=== PATIENT | female | born 2000 | race Caucasian/White ===

== ENCOUNTER 2019-08-12 | Emergency (ER) | payer SELFPAY ==
[2019-08-12 23:13] LABS: URINE BILIRUBIN - DIPSTICK NEGATIVE (NEGATIVE); URINE BLOOD DIPSTICK TRACE-INTACT (NEGATIVE); URINE COLOR YELLOW; URINE GLUCOSE - DIPSTICK NEGATIVE (NEGATIVE); URINE KETONE NEGATIVE (NEGATIVE); URINE LEUK ESTERASE NEGATIVE (NEGATIVE); URINE NITRITE - DIPSTICK NEGATIVE (Negative); URINE PROTEIN - DIPSTICK NEGATIVE (NEG-TRACE); URINE SPECIFIC GRAVITY 1.015
[2019-08-12] MEDS ORDERED: AMOXICILLIN500 MG PO (23:19)
== END 2019-08-12 23:58 | disposition home or self-care (01) | DRG 153 ==
DX: J02.0 Streptococcal pharyngitis (principal)

== ENCOUNTER 2019-12-27 12:38 | Emergency (ER) | payer MEDICAID ==
[~2019-12-27 12:38] MED LIST: AMOXICILLIN500 MG PO
[2019-12-27 13:42] LABS: HEMATOCRIT 39.4 % (37.0-47.0); HEMOGLOBIN 12.9 g/dl (12.0-16.0); IMMATURE GRANULOCYTES 0.5 % (0.0-5.0); MEAN CELL VOLUME 85.5 fL CALC (80.0-100.0); MEAN CORPUSCULAR HGB CONC 32.7 g/dL CAL (32.0-36.0); RED BLOOD COUNT 4.61 mill/uL (4.20-5.60); RED CELL DISTRI WIDTH 13.1 % (11.5-15.5)
[2019-12-27 13:43] LABS: URINE BILIRUBIN - DIPSTICK NEGATIVE (NEGATIVE); URINE BLOOD DIPSTICK NEGATIVE (NEGATIVE); URINE COLOR YELLOW; URINE GLUCOSE - DIPSTICK NEGATIVE (NEGATIVE); URINE KETONE 15 mg/dL (NEGATIVE); URINE LEUK ESTERASE NEGATIVE (NEGATIVE); URINE NITRITE - DIPSTICK NEGATIVE (Negative); URINE PROTEIN - DIPSTICK NEGATIVE (NEG-TRACE); URINE SPECIFIC GRAVITY 1.025; URINE UROBILINOGEN - DIPSTICK 0.2 E.U./dL (0.2)
[2019-12-27 13:58] LABS: ALBUMIN 4.1 g/dL (3.2-5.0); ALKALINE PHOSPHATASE 47 u/l (38-126); ANION GAP 12 (6-22 (CALC)); BILIRUBIN, TOTAL 0.3 mg/dL (0.0-1.4); BUN 11 mg/dL (7-17); BUN/CREATININE RATIO 30 (12-20 (CALC)); CARBON DIOXIDE 23 mmol/l (22-30); CHLORIDE 105 mmol/l (95-108); CREATININE 0.4 mg/dL (0.5-1.0); GFR > 60 ML/MIN (>=60 (CALC)); GFR FOR AFR.AMER. > 60 ML/MIN (>=60 (CALC)); POTASSIUM 3.8 mmol/l (3.5-5.1); SGOT/AST 27 u/l (14-36); SODIUM 136 mmol/l (137-146)
[2019-12-27 14:14] LABS: BETA-HCG, QUANT(RESULT NUMBER) 10811 mIU/mL
[2019-12-27 14:30] VITALS: BP 120/74
== END 2019-12-27 14:44 | disposition home or self-care (01) ==
LOC: ED 12:38
PROVIDERS: Family Medicine
DX: O26.851 Spotting complicating pregnancy, first trimester (principal); Z3A.01 Less than 8 weeks gestation of pregnancy

== ENCOUNTER 2019-12-29 12:03 | Emergency (ER) | payer MEDICAID ==
[2019-12-29 14:55] VITALS: BP 112/70
== END 2019-12-29 14:55 | disposition home or self-care (01) ==
LOC: ED 12:03
DX: O20.0 Threatened abortion (principal); Z3A.01 Less than 8 weeks gestation of pregnancy

== ENCOUNTER 2020-01-05 11:09 | Emergency (ER) | payer MEDICAID ==
[2020-01-05 12:27] LABS: HEMATOCRIT 37.8 % (37.0-47.0); HEMOGLOBIN 12.5 g/dl (12.0-16.0); IMMATURE GRANULOCYTES 0.4 % (0.0-5.0); MEAN CELL VOLUME 84.6 fL CALC (80.0-100.0); MEAN CORPUSCULAR HGB CONC 33.1 g/dL CAL (32.0-36.0); NEUT# 5.92 thou/uL (2.00-7.15); RED BLOOD COUNT 4.47 mill/uL (4.20-5.60); RED CELL DISTRI WIDTH 13.2 % (11.5-15.5)
[2020-01-05 12:57] LABS: URINE BILIRUBIN - DIPSTICK NEGATIVE (NEGATIVE); URINE BLOOD DIPSTICK TRACE-INTACT (NEGATIVE); URINE COLOR YELLOW; URINE GLUCOSE - DIPSTICK NEGATIVE (NEGATIVE); URINE KETONE >=80 mg/dL (NEGATIVE); URINE LEUK ESTERASE NEGATIVE (NEGATIVE); URINE NITRITE - DIPSTICK NEGATIVE (Negative); URINE PROTEIN - DIPSTICK NEGATIVE (NEG-TRACE); URINE SPECIFIC GRAVITY >=1.030; URINE UROBILINOGEN - DIPSTICK 0.2 E.U./dL (0.2)
[2020-01-05 13:02] LABS: ALBUMIN 4.4 g/dL (3.2-5.0); ALKALINE PHOSPHATASE 52 u/l (38-126); ANION GAP 14 (6-22 (CALC)); BUN 9 mg/dL (7-17); BUN/CREATININE RATIO 26 (12-20 (CALC)); CARBON DIOXIDE 22 mmol/l (22-30); CHLORIDE 104 mmol/l (95-108); CREATININE 0.3 mg/dL (0.5-1.0); GFR > 60 ML/MIN (>=60 (CALC)); GFR FOR AFR.AMER. > 60 ML/MIN (>=60 (CALC)); LIPASE 96 u/l (23-300); POTASSIUM 3.2 mmol/l (3.5-5.1); SGOT/AST 30 u/l (14-36); SODIUM 136 mmol/l (137-146); TOTAL PROTEIN 7.5 g/dL (6.3-8.2)
[2020-01-05 13:03] LABS: BILIRUBIN, TOTAL 0.5 mg/dL (0.0-1.4)
[2020-01-05] MEDS ORDERED: METRONIDAZOL500 MG PO (13:11)
[2020-01-05 15:16] VITALS: BP 110/83
== END 2020-01-05 15:16 | disposition home or self-care (01) ==
LOC: ED 11:09
PROVIDERS: Family Medicine
DX: O23.591 Infection of other part of genital tract in pregnancy, first trimester (principal); B96.89 Other specified bacterial agents as the cause of diseases classified elsewhere; Z3A.01 Less than 8 weeks gestation of pregnancy

== ENCOUNTER 2020-01-12 20:47 | Emergency (ER) | payer MEDICAID ==
[~2020-01-12 20:47] MED LIST changes: +METRONIDAZOL500 MG PO
[2020-01-12 22:35] LABS: HEMATOCRIT 38.8 % (37.0-47.0); HEMOGLOBIN 12.8 g/dl (12.0-16.0); IMMATURE GRANULOCYTES 0.2 % (0.0-5.0); MEAN CELL VOLUME 86.2 fL CALC (80.0-100.0); MEAN CORPUSCULAR HGB 28.4 pG CALC (26.0-32.0); NEUT# 5.32 thou/uL (2.00-7.15); RED BLOOD COUNT 4.5 mill/uL (4.20-5.60); RED CELL DISTRI WIDTH 13.4 % (11.5-15.5)
[2020-01-12 22:44] LABS: URINE BILIRUBIN - DIPSTICK NEGATIVE (NEGATIVE); URINE BLOOD DIPSTICK NEGATIVE (NEGATIVE); URINE COLOR YELLOW; URINE GLUCOSE - DIPSTICK NEGATIVE (NEGATIVE); URINE KETONE NEGATIVE (NEGATIVE); URINE LEUK ESTERASE NEGATIVE (NEGATIVE); URINE NITRITE - DIPSTICK NEGATIVE (Negative); URINE PROTEIN - DIPSTICK NEGATIVE (NEG-TRACE)
[2020-01-12 22:55] LABS: ALBUMIN 4.2 g/dL (3.2-5.0); ALKALINE PHOSPHATASE 42 u/l (38-126); BUN 9 mg/dL (7-17); BUN/CREATININE RATIO 24 (12-20 (CALC)); CARBON DIOXIDE 25 mmol/l (22-30); CHLORIDE 100 mmol/l (95-108); CREATININE 0.4 mg/dL (0.5-1.0); GFR > 60 ML/MIN (>=60 (CALC)); GFR FOR AFR.AMER. > 60 ML/MIN (>=60 (CALC)); SGOT/AST 27 u/l (14-36); SODIUM 134 mmol/l (137-146); TOTAL PROTEIN 7.1 g/dL (6.3-8.2)
[2020-01-12 23:02] LABS: ANION GAP 13 (6-22 (CALC)); BILIRUBIN, TOTAL 0.2 mg/dL (0.0-1.4); POTASSIUM 3.9 mmol/l (3.5-5.1)
[2020-01-12] MEDS ORDERED: PHENERGAN25 MG RE ×2 (23:32)
[2020-01-13 00:29] VITALS: BP 129/72
== END 2020-01-13 00:43 | disposition home or self-care (01) ==
LOC: ED 20:47
PROVIDERS: Family Medicine
DX: O21.9 Vomiting of pregnancy, unspecified (principal); Z3A.08 8 weeks gestation of pregnancy

== ENCOUNTER 2020-02-25 18:56 | Emergency (ER) | payer MEDICAID ==
[~2020-02-25] VITALS: Ht 154.9 cm; Wt 75.9 kg
[~2020-02-25 18:56] MED LIST changes: +PHENERGAN25 MG RE
[2020-02-25] MEDS ORDERED: AMOXICILLIN500 MG PO (21:04)
[2020-02-25 21:30] VITALS: BP 115/74
== END 2020-02-25 21:30 | disposition home or self-care (01) ==
LOC: ED 18:56
DX: O98.511 Other viral diseases complicating pregnancy, first trimester (principal); U07.1 COVID-19; J02.0 Streptococcal pharyngitis; Z3A.14 14 weeks gestation of pregnancy

== ENCOUNTER 2022-02-04 12:02 | Emergency (ER) | payer MEDICAID ==
[~2022-02-04] VITALS: Ht 154.9 cm; Wt 81.6 kg
[2022-02-04 12:07] VITALS: BP 147/92
[2022-02-04 12:15] VITALS: BP 134/91
[2022-02-04] MEDS ORDERED: FLOXIN OTIC0.3 % AS (12:19)
[2022-02-04] MEDS ORDERED: AMOXICILLIN500 M2 PO (12:19)
[2022-02-04 12:30] VITALS: BP 136/90
== END 2022-02-04 12:35 | disposition home or self-care (01) ==
LOC: ED 12:02
DX: H60.92 Unspecified otitis externa, left ear (principal)

== ENCOUNTER 2022-06-30 23:02 | Emergency (ER) | payer MEDICAID ==
[~2022-06-30] VITALS: Ht 154.9 cm; Wt 88.0 kg
[~2022-06-30 23:02] MED LIST changes: +AMOXICILLIN500 M2 PO; +FLOXIN OTIC0.3 % AS
[2022-07-01 02:25] LABS: URINE BILIRUBIN - DIPSTICK NEGATIVE (NEGATIVE); URINE BLOOD DIPSTICK NEGATIVE (NEGATIVE); URINE COLOR YELLOW; URINE GLUCOSE - DIPSTICK NEGATIVE (NEGATIVE); URINE KETONE NEGATIVE (NEGATIVE); URINE LEUK ESTERASE NEGATIVE (NEGATIVE); URINE PROTEIN - DIPSTICK NEGATIVE (NEG-TRACE); URINE SPECIFIC GRAVITY >=1.030; URINE UROBILINOGEN - DIPSTICK 0.2 E.U./dL (0.2)
[2022-07-01 02:31] LABS: URINE NITRITE - DIPSTICK NEGATIVE (Negative)
[2022-07-01] MEDS ORDERED: CLARITIN10 M2 PO (02:43)
[2022-07-01] MEDS ORDERED: AMOXICILLIN500 MG PO (02:43)
[2022-07-01 03:26] VITALS: BP 122/87
== END 2022-07-01 03:27 | disposition home or self-care (01) ==
LOC: ED 23:02
PROVIDERS: Emergency Medicine
DX: J02.0 Streptococcal pharyngitis (principal); Z20.822 Contact with and (suspected) exposure to COVID-19

== ENCOUNTER 2023-01-12 23:01 | Emergency (ER) | payer MEDICAID ==
[~2023-01-12] VITALS: Ht 154.9 cm; Wt 83.0 kg
[~2023-01-12 23:01] MED LIST changes: +CLARITIN10 M2 PO
[2023-01-12] MEDS ORDERED: FLOXIN OTIC0.3 % AD (23:47)
[2023-01-12 23:55] VITALS: BP 108/77
== END 2023-01-12 23:55 | disposition home or self-care (01) ==
LOC: ED 23:01
DX: T16.1XXA Foreign body in right ear, initial encounter (principal); X58.XXXA Exposure to other specified factors, initial encounter; H60.91 Unspecified otitis externa, right ear

== ENCOUNTER 2023-08-11 17:13 | Emergency (ER) | payer SELFPAY ==
[~2023-08-11] VITALS: Ht 154.9 cm; Wt 82.0 kg
[~2023-08-11 17:13] MED LIST changes: +FLOXIN OTIC0.3 % AD
[2023-08-11] MEDS ORDERED: AMOX/K CLAV875 M1 PO (18:05)
[2023-08-11 18:22] VITALS: BP 144/91
== END 2023-08-11 18:35 | disposition home or self-care (01) | DRG 153 ==
LOC: ED 17:13
DX: J03.90 Acute tonsillitis, unspecified (principal); Z20.822 Contact with and (suspected) exposure to COVID-19

== ENCOUNTER 2024-08-19 07:41 | Emergency (ER) | payer OTHER ==
[~2024-08-19] VITALS: Ht 154.9 cm; Wt 81.0 kg
[~2024-08-19 07:41] MED LIST changes: +AMOX/K CLAV875 M1 PO; +DEBROX6.5 % OU; +NAPROXEN500 MG PO
[2024-08-19] MEDS ORDERED: MORPHINE SULFATE 4 MG/ML VIAL IV ONE (08:10)
[2024-08-19] MEDS ORDERED: ONDANSETRON HCl 4 MG/2 ML SDV IV ONE (08:10)
[2024-08-19 08:57] LABS: BASO% 0.4 % (0-3); HEMATOCRIT 42.6 % (37.0-47.0); HEMOGLOBIN 13.7 g/dl (12.0-16.0); IMMATURE GRANULOCYTES 0.1 % (0.0-5.0); LYMPH% 30.7 % (15-41); MEAN CELL VOLUME 85.7 fL CALC (80.0-100.0); MEAN CORPUSCULAR HGB 27.6 pG CALC (26.0-32.0); MEAN CORPUSCULAR HGB CONC 32.2 g/dL CAL (32.0-36.0); MONO% 8.2 % (2-13); NEUT# 4.1 thou/uL (2.00-7.15); NEUT% 57.6 % (42-76); RED BLOOD COUNT 4.97 mill/uL (4.20-5.60); RED CELL DISTRI WIDTH 13.1 % (11.5-15.5)
[2024-08-19 09:00] VITALS: BP 124/86
[2024-08-19 09:13] LABS: ALBUMIN 4.6 g/dL (3.2-5.0); ALKALINE PHOSPHATASE 52 u/l (38-126); BUN 17 mg/dL (7-17); BUN/CREATININE RATIO 31 (12-20 (CALC)); CARBON DIOXIDE 25 mmol/l (22-30); CHLORIDE 107 mmol/l (95-108); CREATININE 0.5 mg/dL (0.5-1.0); ESTIMATED GFR 133 ML/MIN (>=90 (CALC)); LIPASE 144 u/l (23-300); POTASSIUM 3.4 mmol/l (3.5-5.1); TOTAL PROTEIN 7.9 g/dL (6.3-8.2)
[2024-08-19 09:15] VITALS: BP 121/79
[2024-08-19 09:24] LABS: ANION GAP 13 (6-22 (CALC)); BILIRUBIN, TOTAL 0.5 mg/dL (0.02-1.3); SGOT/AST 50 u/l (14-36); SODIUM 142 mmol/l (137-146)
[2024-08-19 09:30] VITALS: BP 116/81
[2024-08-19 10:12] VITALS: BP 110/75
[2024-08-19 10:15] VITALS: BP 109/70
[2024-08-19 10:30] VITALS: BP 102/65
[2024-08-19] MEDS ORDERED: MOTRIN400 MG/TAB PO (10:31)
== END 2024-08-19 11:11 | disposition home or self-care (01) | DRG 90 ==
LOC: ED 07:41
PROVIDERS: Family Medicine
DX: S06.0X0A Concussion without loss of consciousness, initial encounter (principal); V49.40XA Driver injured in collision with unspecified motor vehicles in traffic accident, initial encounter; R07.9 Chest pain, unspecified; M79.605 Pain in left leg
CPT/HCPCS: J2405; Q9967